=== PATIENT | female | born 1940 | race Caucasian/White ===

== ENCOUNTER 2017-12-13 11:47 | Inpatient (IN) | payer OTHER ==
[~2017-12-13] VITALS: Ht 165.1 cm; Wt 91.3 kg
[2017-12-13 12:23] LABS: BASOPHIL (%) 0.1 % (0-1); EOSINOPHIL (%) 0.2 % (0-5); HEMATOCRIT 36.3 % (36.0-46.0); IMMATURE GRANULOCYTE (%) 0.4 % (0.0-0.7); LYMPHOCYTE (%) 9.7 % (15-42); LYMPHOCYTE COUNT 1.6 K/uL (1.0-2.8); MCH 31.5 PG (29.0-34.0); MCHC 33.1 G/DL (30.0-36.0); MCV 95.3 FL (83-99); MONOCYTE COUNT 0.7 K/uL (0-0.8); NEUTROPHIL (%) 85.6 % (45-76); PLATELET COUNT 343 K/uL (156-360); RBC DIS.WIDTH-CV 12.9 % (11.8-14.6); RBC DIS.WIDTH-SD 44.2 % (39-53); RED BLOOD COUNT 3.81 M/uL (3.80-5.20); WHITE BLOOD COUNT 16.4 K/uL (4.1-10.2)
[2017-12-13 12:47] LABS: PTT 25.9 SEC (25-37)
[2017-12-13 12:58] LABS: TROP-I INTERPRETATION NEGATIVE; TROPONIN-I < 0.01 ng/mL (0.0-0.30)
[2017-12-13 13:15] LABS: CHLORIDE 98 mEq/L (99-109); POTASSIUM 3.4 mEq/L (3.7-5.4); SODIUM 138 mEq/L (136-147)
[2017-12-13 13:16] LABS: GLUCOSE 153 mg/dL (70-99)
[2017-12-13 13:20] LABS: CREATININE 1.1 mg/dL (0.6-1.3); GFR ESTIMATE (CALCULATED) 51 mL/min/
[2017-12-13 13:21] LABS: UREA NITROGEN (BUN) 18 mg/dL (9-23)
[2017-12-13 16:03] LABS: BASE EXCESS 5.4 mEq/L (-3 to +3); BICARBONATE 30.5 mEq/L (22-26); CARBOXY HGB 1.7 % (0-5); METHEMOGLOBIN 1.2 % (0-1.5); PCO2 46 mm Hg (35-45); PO2 77 mm Hg (80-100); SITE RR; pH 7.43 (7.35-7.45)
[2017-12-13 16:04] LABS: COMMENTS - BLOOD GASES A+C+; DEVICE NC
[2017-12-13] MEDS ORDERED: NAPROXEN500 MG PO (16:23)
[2017-12-13] MEDS ORDERED: ENDOCET 5-3251 EACH PO (16:24)
[2017-12-13] MEDS ORDERED: PREDNISONE10 MG PO (16:26)
[2017-12-13] MEDS ORDERED: GABAPENTIN600 MG PO (16:26)
[2017-12-13] MEDS ORDERED: LIDODERM 5% P1 PATCH TD (16:29)
[2017-12-13] MEDS ORDERED: NITROGLYCERIN0.4 MG SL (16:30)
[2017-12-13] MEDS ORDERED: OMEGA 3 500 SO1 EACH PO (16:31)
[2017-12-13] MEDS ORDERED: PLAVIX75 MG PO (16:31)
[2017-12-13] MEDS ORDERED: CARBIDOPA-LEVO1 EAC7 PO (16:33)
[2017-12-13] MEDS ORDERED: LIPITOR40 MG PO (16:35)
[2017-12-13] MEDS ORDERED: CYMBALTA60 MG PO (16:36)
[2017-12-13] MEDS ORDERED: EVISTA60 MG PO (16:36)
[2017-12-13] MEDS ORDERED: FOLBIC TABLET1 EACH PO (16:37)
[2017-12-13] MEDS ORDERED: LO-DOSE ASPIRIN81 M2 PO (16:38)
[2017-12-13] MEDS ORDERED: ERGOCALCIF50000 UNIT PO (16:39)
[2017-12-13] MEDS ORDERED: MAG-OXIDE400 MG PO (16:39)
[2017-12-13] MEDS ORDERED: PROAIR HFA8.5 GM IH (16:40)
[2017-12-13] MEDS ORDERED: ONE DAILY1 EAC3 PO (16:41)
[2017-12-13] MEDS ORDERED: OXYBUTYNIN CHLOR5 MG PO (16:42)
[2017-12-13] MEDS ORDERED: GLUCOPHAGE500 MG PO (16:42)
[2017-12-13] MEDS ORDERED: BUTALB-ASPIRIN1 EACH PO (16:43)
[2017-12-13 18:17] VITALS: BP 145/67
[2017-12-13 19:43] VITALS: BP 143/67
[2017-12-13 22:19] LABS: APPEARANCE SL.HAZY ((CLEAR)); BILIRUBIN NEGATIVE; BLOOD NEGATIVE; COLOR YELLOW ((YELLOW)); GLUCOSE (STRIP) NEGATIVE; KETONES NEGATIVE; LEUKOCYTES LARGE; NITRITE NEGATIVE; PROTEIN (STRIP) NEGATIVE; SPECIFIC GRAVITY 1.011 (1.000-1.030); UROBILINOGEN 0.2 MG/DL (0.2-1.0)
[2017-12-13 22:26] LABS: BACTERIA 2+ /HPF; EPITHELIAL CELLS 1+ /HPF; MUCUS TRACE /LPF; RED BLOOD CELLS 0-5 /HPF (0-5); UCUL ADDED? YES; WHITE BLOOD CELLS TNTC /HPF (0-5)
[2017-12-13 23:15] VITALS: BP 145/67
[2017-12-14 03:59] VITALS: BP 135/63
[2017-12-14 06:56] LABS: CHLORIDE 100 MEQ/L (99-109); CREATININE 0.9 MG/DL (0.6-1.3); GFR ESTIMATE (CALCULATED) > 59 mL/min/; POTASSIUM 3.9 MEQ/L (3.7-5.4); SODIUM 138 MEQ/L (136-147); UREA NITROGEN (BUN) 17 mg/dL (9-23)
[2017-12-14 06:57] LABS: GLUCOSE 101 mg/dL (70-99)
[2017-12-14 08:30] VITALS: BP 167/80
[2017-12-14 12:33] VITALS: BP 149/70
[2017-12-14 18:55] VITALS: BP 148/75
[2017-12-14 19:43] VITALS: BP 141/70
[2017-12-15 04:53] VITALS: BP 141/67
[2017-12-15 07:43] VITALS: BP 165/75
[2017-12-15 12:37] VITALS: BP 164/81
[2017-12-15 15:47] VITALS: BP 175/74
[2017-12-15 19:53] VITALS: BP 148/70
[2017-12-15 23:28] VITALS: BP 142/74
[2017-12-16 03:55] VITALS: BP 123/59
[2017-12-16 07:47] VITALS: BP 131/60
[2017-12-16 11:00] VITALS: BP 122/60
[2017-12-16 16:25] VITALS: BP 130/65
[2017-12-16 19:56] VITALS: BP 159/80
[2017-12-16 23:24] VITALS: BP 159/76
[2017-12-17 04:30] VITALS: BP 169/79
[2017-12-17 04:39] LABS: BASOPHIL (%) 0.1 % (0-1); EOSINOPHIL (%) 0.1 % (0-5); HEMATOCRIT 33.5 % (36.0-46.0); HEMOGLOBIN 11.5 G/DL (11.9-15.5); IMMATURE GRANULOCYTE (%) 0.4 % (0.0-0.7); LYMPHOCYTE (%) 17.5 % (15-42); LYMPHOCYTE COUNT 1.6 K/uL (1.0-2.8); MCHC 34.3 G/DL (30.0-36.0); MCV 93.3 FL (83-99); MONOCYTE (%) 4.7 % (3-12); MONOCYTE COUNT 0.4 K/uL (0-0.8); NEUTROPHIL (%) 77.2 % (45-76); NEUTROPHIL COUNT 7.1 K/uL (1.8-6.4); PLATELET COUNT 336 K/uL (156-360); RBC DIS.WIDTH-CV 12.5 % (11.8-14.6); RBC DIS.WIDTH-SD 42.7 % (39-53); RED BLOOD COUNT 3.59 M/uL (3.80-5.20); WHITE BLOOD COUNT 9.2 K/uL (4.1-10.2)
[2017-12-17 05:01] LABS: ALBUMIN 3.3 g/dL (3.2-4.8); CHLORIDE 102 mEq/L (99-109); POTASSIUM 4.3 mEq/L (3.7-5.4); SODIUM 135 mEq/L (136-147)
[2017-12-17 05:03] LABS: GLUCOSE 127 mg/dL (70-99); TOTAL PROTEIN 5.6 g/dL (6.4-8.3)
[2017-12-17 05:05] LABS: TOTAL BILIRUBIN 0.5 mg/dL (0.0-1.0)
[2017-12-17 05:07] LABS: ALKALINE PHOSPHATASE 111 IU/L (3-129); CREATININE 0.7 mg/dL (0.6-1.3); GFR ESTIMATE (CALCULATED) > 59 mL/min/
[2017-12-17 05:08] LABS: UREA NITROGEN (BUN) 14 mg/dL (9-23)
[2017-12-17 05:09] LABS: AST (GOT) 19 IU/L (2-34)
[2017-12-17 05:10] LABS: ALT (GPT) 8 IU/L (3-49)
[2017-12-17 07:25] VITALS: BP 129/70
[2017-12-17 09:59] LABS: HEMOGLOBIN A1c (GLYCOHEMOGLOB) 6.3 % (Below 5.7)
[2017-12-17 11:41] VITALS: BP 151/85
[2017-12-17 15:21] VITALS: BP 169/80
[2017-12-17 20:00] VITALS: BP 185/88
[2017-12-17 20:30] VITALS: BP 145/75
[2017-12-18] VITALS (7 sets, daily range): BP systolic 151–196; BP diastolic 72–95
[2017-12-18 05:15] LABS: BASOPHIL (%) 0.3 % (0-1); EOSINOPHIL (%) 0.1 % (0-5); HEMATOCRIT 35.6 % (36.0-46.0); HEMOGLOBIN 11.8 G/DL (11.9-15.5); IMMATURE GRANULOCYTE (%) 0.3 % (0.0-0.7); LYMPHOCYTE (%) 24.5 % (15-42); LYMPHOCYTE COUNT 2.7 K/uL (1.0-2.8); MCH 31.4 PG (29.0-34.0); MCHC 33.1 G/DL (30.0-36.0); MCV 94.7 FL (83-99); MONOCYTE (%) 5.7 % (3-12); MONOCYTE COUNT 0.6 K/uL (0-0.8); NEUTROPHIL (%) 69.1 % (45-76); NEUTROPHIL COUNT 7.6 K/uL (1.8-6.4); PLATELET COUNT 309 K/uL (156-360); RBC DIS.WIDTH-CV 12.7 % (11.8-14.6); RBC DIS.WIDTH-SD 43.8 % (39-53); RED BLOOD COUNT 3.76 M/uL (3.80-5.20); WHITE BLOOD COUNT 10.9 K/uL (4.1-10.2)
[2017-12-18 05:42] LABS: ALBUMIN 3.3 G/DL (3.2-4.8); ALKALINE PHOSPHATASE 94 IU/L (3-129); ALT (GPT) 5 IU/L (3-49); AST (GOT) 17 IU/L (2-34); CHLORIDE 101 MEQ/L (99-109); CREATININE 0.9 MG/DL (0.6-1.3); GFR ESTIMATE (CALCULATED) > 59 mL/min/; GLUCOSE 142 mg/dL (70-99); POTASSIUM 3.8 MEQ/L (3.7-5.4); SODIUM 136 MEQ/L (136-147); TOTAL BILIRUBIN 0.4 MG/DL (0.0-1.0); TOTAL PROTEIN 6.1 G/DL (6.4-8.3); UREA NITROGEN (BUN) 16 mg/dL (9-23)
[2017-12-19 02:38] VITALS: BP 150/72
[2017-12-19 04:56] VITALS: BP 185/80
[2017-12-19 06:30] VITALS: BP 152/70
[2017-12-19 07:28] VITALS: BP 145/65
[2017-12-19] MEDS ORDERED: LISINOPRIL20 MG PO (12:21)
[2017-12-19 12:22] VITALS: BP 123/60
[2017-12-19] MEDS ORDERED: NOVOLOG 10100 UNITS/ SC (12:23)
[2017-12-19] MEDS ORDERED: CYCLOBENZAPRINE5 MG PO (12:23)
[2017-12-19] MEDS ORDERED: CEFTIN500 MG PO (12:23)
[2017-12-19] MEDS ORDERED: ENDOCET 5-3251 EACH PO (12:23)
[2017-12-20] MEDS ORDERED: PREDNISONE10 MG PO (10:26)
== END 2017-12-19 15:18 | DRG 871 ==
LOC: EME 11:47 → EDOF 15:16 → ENRESERV 15:17 → 3EAST 15:39 → EDOF 15:39 → ENRESERV 16:20 → 3EAST 17:42
PROVIDERS: Emergency Medicine; Hospitalist
DX: A41.9 Sepsis, unspecified organism (principal); J18.9 Pneumonia, unspecified organism; J96.01 Acute respiratory failure with hypoxia; M48.56XA Collapsed vertebra, not elsewhere classified, lumbar region, initial encounter for fracture; N13.4 Hydroureter; M48.061 Spinal stenosis, lumbar region without neurogenic claudication; G20 Parkinson's disease; E11.9 Type 2 diabetes mellitus without complications; E86.0 Dehydration; I11.0 Hypertensive heart disease with heart failure; I50.9 Heart failure, unspecified; E78.5 Hyperlipidemia, unspecified; I95.1 Orthostatic hypotension; R29.6 Repeated falls; W07.XXXA Fall from chair, initial encounter; I25.10 Atherosclerotic heart disease of native coronary artery without angina pectoris; G89.29 Other chronic pain; J98.11 Atelectasis; Y95 Nosocomial condition; G62.9 Polyneuropathy, unspecified; Z68.33 Body mass index [BMI] 33.0-33.9, adult; Z79.02 Long term (current) use of antithrombotics/antiplatelets; Z79.01 Long term (current) use of anticoagulants; Z95.1 Presence of aortocoronary bypass graft; Z90.710 Acquired absence of both cervix and uterus; Z90.49 Acquired absence of other specified parts of digestive tract; Z86.73 Personal history of transient ischemic attack (TIA), and cerebral infarction without residual deficits; Z80.42 Family history of malignant neoplasm of prostate; Z91.81 History of falling; Z80.3 Family history of malignant neoplasm of breast
CPT/HCPCS: 36600; 70450; 71045; 71250; 72148; 78582; 80048; 80053; 81003; 82803; 82948; 83036; 83605; 83880; 84484; 85025; 85379; 85610; 85730; 87040; 87070; 87086; 87205; 87449; 87502; 92610 GN; 93005; 94760; 94799; 99281; 99285; A9539; A9540; J0360; J0696; J1650; J1815; J2270; J2543; J7030; J7050; J7120; J7512

== ENCOUNTER 2018-02-11 07:57 | Day surgery (SDC) | payer OTHER ==
[~2018-02-11] VITALS: Ht 167.6 cm; Wt 79.0 kg
[~2018-02-11 07:57] MED LIST: BUTALB-ASPIRIN1 EACH PO; CARBIDOPA-LEVO1 EAC7 PO; CEFTIN500 MG PO; CYCLOBENZAPRINE5 MG PO; CYMBALTA60 MG PO; DITROPAN5 MG PO; ENDOCET 5-3251 EACH PO; ERGOCALCIF50000 UNIT PO; EVISTA60 MG PO; FOLBIC TABLET1 EACH PO; GABAPENTIN600 MG PO; GLUCOPHAGE500 MG PO; LASIX40 MG PO; LIDODERM 5% P1 PATCH TD; LIPITOR40 MG PO; LISINOPRIL20 MG PO; LO-DOSE ASPIRIN81 M2 PO; MAG-OXIDE400 MG PO; NAPROXEN500 MG PO; NITROGLYCERIN0.4 MG SL; NOVOLOG 10100 UNITS/ SC; OMEGA 3 500 SO1 EACH PO; ONE DAILY1 EAC3 PO; OXYBUTYNIN CHLOR5 MG PO; PLAVIX75 MG PO; PREDNISONE10 MG PO; PROAIR HFA8.5 GM IH
[2018-02-11] MEDS ORDERED: LISINOPRIL20 MG PO (08:30)
[2018-02-11] MEDS ORDERED: HUMALOG100 UNIT/1 SC (08:32)
[2018-02-11 08:37] VITALS: BP 188/80
[2018-02-11 09:50] VITALS: BP 167/77
[2018-02-11 13:40] VITALS: BP 143/77
[2018-02-11 15:14] VITALS: BP 135/71
== END 2018-02-11 15:33 | disposition home or self-care (01) ==
LOC: SDC 07:57
PROVIDERS: Neurological Surgery
PROC: 0QU03JZ Supplement Lumbar Vertebra with Synthetic Substitute, Percutaneous Approach (ICD-10-PCS; principal; 2018-02-11)
DX: S32.030A Wedge compression fracture of third lumbar vertebra, initial encounter for closed fracture (principal); M54.5 Low back pain; G89.29 Other chronic pain; G20 Parkinson's disease; M81.0 Age-related osteoporosis without current pathological fracture; W19.XXXA Unspecified fall, initial encounter; I10 Essential (primary) hypertension; Z86.73 Personal history of transient ischemic attack (TIA), and cerebral infarction without residual deficits; Z95.1 Presence of aortocoronary bypass graft; Z79.82 Long term (current) use of aspirin
CPT/HCPCS: 72100; 76000; 82948; J0360; J0690; J1170; J2250; J2405; J3010